=== PATIENT | female | born 1970 | race Caucasian/White ===

== ENCOUNTER 2017-11-03 12:46 | Outpatient (RCR) | payer BC | END 2017-11-12 | disposition home or self-care (01) | LOC: WCC 12:46 | DX: T86.821 Skin graft (allograft) (autograft) failure (principal); Z90.13 Acquired absence of bilateral breasts and nipples; E03.9 Hypothyroidism, unspecified | CPT/HCPCS: 99204 ==

== ENCOUNTER 2017-11-03 13:53 | Outpatient (RCR) | payer SELFPAY | END 2017-11-12 | disposition home or self-care (01) | LOC: WCC 13:53 | DX: T86.821 Skin graft (allograft) (autograft) failure (principal); Z90.13 Acquired absence of bilateral breasts and nipples; E03.9 Hypothyroidism, unspecified | CPT/HCPCS: G0277 ×2 ==